=== PATIENT | female | born 1975 | race Caucasian/White ===

== ENCOUNTER → 2018-02-06 02:22 | Outpatient (CLI) | payer MEDICAID, SELFPAY ==
--- NOTE | 2018-02-06 16:20 | DI.REPORT_ITS ---
SYMPTOM/DIAGNOSIS: SCREENING, Z12.31 MAMMOGRAMS: Mammograms were interpreted according to the usual protocol including computer analysis with CAD system, tomosynthesis and C view imaging. The breast tissue is heterogeneously radiodense which lowers the sensitivity of the study. There is no dominant mass. There are no suspicious calcifications and there has been no significant interval change when compared with prior images. SUMMARY: No evidence of malignancy, category 1. Yearly screening mammography is recommended. Breast density, Category C. SA ASSESSMENT OF FINDINGS: Negative. Category 1. Patient will receive a letter notifying them of these results. Bi-RADS category C. The breasts are heterogeneously dense, which may obscure small masses.
== END ==
PROVIDERS: PCP Family Medicine; Visit Provider Nurse Practitioner Family
DX: Z12.31 Encounter for screening mammogram for malignant neoplasm of breast (principal)
CPT/HCPCS: 77063; 77067

== ENCOUNTER → 2018-02-08 14:44 | Outpatient (CLI) | payer MEDICAID, SELFPAY ==
[2018-02-12 14:04] LABS: Chlamydia Result Negative; GC Result Negative; Specimen Description CERVIX
== END ==
PROVIDERS: PCP Family Medicine; Visit Provider Nurse Practitioner Women's Health
DX: Z11.3 Encounter for screening for infections with a predominantly sexual mode of transmission (principal)
CPT/HCPCS: 87491; 87591

== ENCOUNTER 2018-04-13 02:11 | Outpatient (CLI) | payer MEDICAID, SELFPAY | END 2018-04-13 02:31 | PROVIDERS: PCP Family Medicine; Visit Provider Family Medicine | DX: R00.0 Tachycardia, unspecified (principal); I49.1 Atrial premature depolarization; I49.3 Ventricular premature depolarization | CPT/HCPCS: 93225 ==

== ENCOUNTER 2018-04-18 14:49 | Outpatient (CLI) | payer MEDICAID, SELFPAY ==
--- NOTE | 2018-04-20 09:48 | W.HOLTRPT ---
Holter Monitor Report Holter Monitor Note: 48-hour Holter monitor Indication: Tachycardia Baseline: sinus rhythm. Average heart rate 90 bpm. Rare PVCs. No NSVT. Rare PACs. No atrial arrhythmias. No significant pauses or bradyarrhythmias. 2 diary entries of thumping corresponded to sinus tachycardia. Overall sinus rhythm with rare isolated ectopy. Patient symptoms corresponding to sinus tachycardia.
== END 2018-04-18 15:09 ==
PROVIDERS: PCP Family Medicine; Visit Provider Family Medicine
DX: R00.0 Tachycardia, unspecified (principal); I49.1 Atrial premature depolarization; I49.3 Ventricular premature depolarization
CPT/HCPCS: 93226

== ENCOUNTER 2018-05-15 14:24 | Emergency (ER) | payer MEDICAID, SELFPAY ==
[2018-05-15 14:28] VITALS: BP 120/71; PULSE 98; RESP 20; TEMP 36.8; O2SAT 100
--- NOTE | 2018-05-15 14:52 | DI.RAD_ITS ---
SYMPTOMS/DIAGNOSIS: COUGH, SHORTNESS OF BREATH PA AND LATERAL CHEST: Comparison is made with May,. The cardiac and mediastinal contours have a normal appearance. The lungs are well inflated and clear. No infiltrate, effusion or pneumothorax is seen. IMPRESSION: Negative chest x-ray.
--- NOTE | 2018-05-15 14:53 | W.ED.GENAD ---
Discharge Plan Disposition Patient Disposition: HOME Condition: Good Discharge Details Chief Complaint: Nk/Back Pain Clinical Impression: Bronchitis Primary Care Provider: Em Street ED Provider: Trevin England Home Meds and New Rx's Prescriptions: New azithromycin 250 mg tablet 250 mg PO DAILY Qty: 6 RF: 0 prednisone 50 MG tablet 50 mg PO DAILY Qty: 5 RF: 0 No Action acyclovir 200 MG capsule 200 mg PO PRN RF: 0 bupropion HCl [Wellbutrin XL] 300 MG tablet extended release 24 hr 300 mg PO DAILY RF: 0 lisdexamfetamine [Vyvanse] 30 MG capsule 50 mg PO DAILY RF: 0 albuterol sulfate [ProAir HFA] 8.5 GM HFA aerosol inhaler 2 puff Inhalation Q4H PRNRF: 0 Discharge Instructions Instructions: Acute Bronchitis (ED) Additional Instructions: Please take medication as directed, please use your albuterol inhaler every 4-6 hours for the next 4 days. Please stop smoking as soon as possible. If you notice any worsening of your symptoms, or any new symptoms such as vomiting, diarrhea, fever, chills, shortness of breath, chest pain, numbness, weakness, or fainting , please return immediately to the emergency department for reevaluation. Please follow up with your primary care provider as soon as possible for reassessment and reevaluation. As always, it was a pleasure participating in your medical care today. Referrals: Em Street MD [Primary Care Provider] - Medical Decision Making This is a 42-year-old female who presents today for evaluation of cough, chronic back pain. She states that she does have chronic back pain which she understands however she feels that her cough, with mild shortness of breath is worsening her chronic back pain which she is getting adequately followed up with an outpatient basis with physical therapist. She states that she has had bronchitis and pneumonia in the past and that this feels very similar to that. She has improvement with her breathing treatments at home, but it is only brief. Patient denies any pulmonary embolism red flags, vital signs are reassuring. She did have a recent Holter monitor which was also normal. At this time we will give the patient a breathing treatment, evaluate for potential pneumonia with a chest x-ray, provide her a Lidoderm patch for her chronic spasms. 4:20 PM Patient states that she feels mildly better with the updraft treatment. Vital signs continue to be reassuring. Chest x-ray shows no acute process, however clinically she seems to demonstrate signs and symptoms concerning for community-acquired pneumonia versus chronic bronchitis. Especially of her history with bronchitis and pneumonia feeling identical to this. I do feel that she would benefit from a trial of antibiotics, as well as steroids. We will increase her daily inhaler usage to every 4-6 hours with no neurologic deficits, and no acute change for her back pain I do not feel that she requires further intervention or additional evaluation at this time. We have recommended continue close follow-up with her primary care provider and physical therapist and back specialist. Discussed red flags which to return the patient understands. I have extensively reviewed the treatment plan and discharge instructions with the patient. I have addressed all patient concerns at this time. The patient was made aware of what symptoms to monitor for that would warrant a return to the emergency department. Discussed the plan with the patient, they demonstrate verbal understanding and agreement with our assessment and plan at this time. IMPRESSION: 1. No acute fracture or dislocation. 2. Suprapatellar joint effusion 3. 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 HPI General Date/Time Provider Initiated Documentation: 05/15/18 14:42. HPI Narrative: This is a 42-year-old female with a past medical history of tachycardia recently had a normal Holter monitor, history of chronic back pain, she is currently being seen for physical therapy, injections, muscle relaxant and treatments, currently on Flexeril, who is also a smoker. She presents today for evaluation of cough. She does have her chronic back pain for the last 2-3 weeks, she is developed a mild cough over these last few weeks as well. It is nonproductive. Seems to be worsening her back pain whenever she coughs. She denies any hemoptysis, no chills, but does admit to occasional fever of 100.3 over the past few weeks but has been afebrile for some quite some. She does use her home inhaler and she states that this helps a little. She denies any associated symptoms of leg swelling, calf pain, numbness tingling or weakness. She states that her symptoms are very similar to previous episodes of bronchitis and pneumonia that she has had she denies any trauma to her neck or back. She denies any other complaints at this time. She denies any acute change for her chronic muscular back and neck pain. Denies PE risk factors such as recent long car rides, immobilization, recent surgery, prior history of DVT or PE, family history of PE or DVT, morbid obesity, exogenous estrogen and smoking, hemoptysis, history of cancer. Past surgical history is positive for hysterectomy and single right-sided oophorectomy. Patient denies any other complaints at this time. Patient states that she was unable to get an appointment with her primary care provider within the next week and so she came here for further evaluation. Holter monitor report is as follows: Holter Monitor Report Holter Monitor Note: 48-hour Holter monitor Indication: Tachycardia Baseline: sinus rhythm. Average heart rate 90 bpm. Rare PVCs. No NSVT. Rare PACs. No atrial arrhythmias. No significant pauses or bradyarrhythmias. 2 diary entries of thumping corresponded to sinus tachycardia. Overall sinus rhythm with rare isolated ectopy. Patient symptoms corresponding to sinus tachycardia. Related Data Home Medications Medication Instructions Recorded Confirmed acyclovir 200 mg PO PRN 09/03/13 05/15/18 albuterol sulfate [Proair Hfa] 2 puff INHALATION Q4H PRN 03/27/15 05/15/18 bupropion HCl [Wellbutrin Xl] 300 mg PO DAILY tab-cap 02/08/18 05/15/18 lisdexamfetamine [Vyvanse] 50 mg PO DAILY tab-cap 02/08/18 05/15/18 azithromycin 250 mg PO DAILY #6 tab 05/15/18 prednisone 50 mg PO DAILY #5 tab 05/15/18 Previous Rx's Medication Instructions Recorded azithromycin 250 mg PO DAILY #6 tab 05/15/18 prednisone 50 mg PO DAILY #5 tab 05/15/18 Allergies Allergy/AdvReac Type Severity Reaction Status Date / Time No Known Allergies Allergy Unverified 05/15/18 14:33 General Stated Complaint: Nk/Back Pain DEV: 3 Review of Systems Review of Systems All systems reviewed & are unremarkable except as noted in HPI and below PFSH section Hysterectomy, Laproscopic Ligation of fallopian tube Oophrectomy, Right Social History Smoking/Tobacco Use Status: Current every day Surgical History section Hysterectomy, Laproscopic Ligation of fallopian tube Oophrectomy, Right Social History Smoking/Tobacco Use Status: Current every day Exam Narrative Exam Narrative: 1.Const: Well-nourished, Well-developed, appearing stated age 2.Eyes: PERRL, no conjunctival injection, and symmetrical lids. 3.ENT: Atraumatic external nose and ears. Moist MM. Neck: Symmetric, trachea midline, No thyromegaly. 4.CVS: +S1/S2, No murmurs or gallops. Peripheral pulses 2+ and equal in all extremities. Brisk capillary refill in all extremities. 5.RESP: Unlabored respiratory effort. Minimal wheeze on the left and right, no crackles, but slightly decreased breath sounds in the right. No other significant abnormalities. 6.GI: Soft, Nontender/Nondistended, No hepatosplenomegaly. No guarding or rebound. 7.MSK: Normocephalic/Atraumatic, Extremities w/o deformity or ttp No cyanosis or clubbing, Normal movement of all extremities. Patient demonstrates mild to moderate left-sided paraspinal tenderness, as well as mild left-sided cervical spine tenderness. No midline tenderness for cervical thoracic or lumbar spine. No step-off sign. Normal strength in all extremities. 8.Skin: Warm, Dry. No rashes or lesions. 9.Neuro: diplomatic interpreter/translator II-XII grossly intact. Sensation grossly intact, no focal neurologic deficits. No midline tenderness to palpation over the CTLS spine. Normal ROM in flexion, extension, side bend, and rotation. Patient has +5 out of 5 strength in the lower extremities in dorsiflexion and plantarflexion, knee flexion and extension, hip flexion and extension. There is +2 over 2 dorsalis pedis pulses bilaterally. There is normal sensation to the skin with light touch at the foot, knee, and hip. Normal saddle sensation. Good sensation over the deep sural nerve area bilaterally. Rectal exam deferred. Reflexes are +2 over 4 in the patellar reflex bilaterally. +5 out of 5 strength in the medial, ulnar, radial nerve distribution bilaterally in the hands as well as intact light touch sensation to these dermatomes on the hands 10.Psych: (AAO) x3. Appropriate mood and affect Course Vital Signs Temperature 36.8 C 05/15/18 14:28 Pulse 98 H 05/15/18 14:28 Respiratory Rate 20 05/15/18 14:28 Blood Pressure 120/71 05/15/18 14:28 Pulse Oximetry 100 05/15/18 14:28 Temperature 36.8 C 05/15/18 14:28 Temperature Source Temporal Artery Scan 05/15/18 14:28 Pulse 98 H 05/15/18 14:28 Respiratory Rate 20 05/15/18 14:28 Respiratory Effort Non-Labored 05/15/18 14:28 Blood Pressure 120/71 05/15/18 14:28 Blood Pressure Position Sitting 05/15/18 14:28 Pulse Oximetry 100 05/15/18 14:28 Oxygen Delivery Method Room Air 05/15/18 14:28 Oxygen Flow Rate 0 05/15/18 14:28 Pain Level 6 05/15/18 14:28
[2018-05-15] MEDS: Lidocaine 5% Patch 1 PATCH TP (15:10)
[2018-05-15] MEDS: Albuterol/Ipratropium 3 ML UPD VIAL UPD (15:10)
--- NOTE | 2018-05-15 16:14 | DI.VRAD_ITS ---
EXAM: XR Chest, 2 Views EXAM DATE/TIME: 05/15/2018 4:05 PM CLINICAL HISTORY: 42 years old, female; Signs and symptoms; Cough and shortness of breath TECHNIQUE: XR of the chest, 2 views. COMPARISON: CR CHEST 2 VIEWS PA,LAT 05/27/2016 12:26 PM FINDINGS: Lungs: Unremarkable. No consolidation. Pleural space: Unremarkable. No pleural effusion. No pneumothorax. Heart/Mediastinum: Unremarkable. No cardiomegaly. Bones/joints: Unremarkable. IMPRESSION: No acute findings. Dictated and Authenticated by: Eduard Wyman MD. Ordering:JENNIFER CHOPRA MD
== END 2018-05-15 16:31 | disposition home or self-care (01) ==
LOC: ER 16:40
PROVIDERS: Emergency Provider Student in an Organized Health Care Education/Training Program; PCP Family Medicine
DX: J20.9 Acute bronchitis, unspecified (principal); M54.5 Low back pain; G89.29 Other chronic pain; F17.210 Nicotine dependence, cigarettes, uncomplicated
CPT/HCPCS: 94640; 99283; 71046; J7620

== ENCOUNTER 2018-06-08 18:49 | Emergency (ER) | payer MEDICAID, SELFPAY ==
[2018-06-08 19:02] VITALS: BP 128/81; PULSE 92; RESP 20; TEMP 37.1; O2SAT 97
--- NOTE | 2018-06-08 19:36 | DI.RAD_ITS ---
SYMPTOM/DIAGNOSIS: CONSTIPATION PA CHEST AND FLAT AND UPRIGHT ABDOMEN: The heart size is normal. The lungs are well inflated and clear. The bowel gas pattern is unremarkable. There is a large quantity of stool seen in the rectum. There is no gastric or small bowel dilatation. There is no evidence of organomegaly or free air. IMPRESSION: Large quantity of stool in the rectum.
--- NOTE | 2018-06-08 21:30 | ED.GENADUL_ITS ---
Discharge Plan Disposition Patient Disposition: HOME Condition: Stable Discharge Details Chief Complaint: Abd Prob Clinical Impression: Constipation Primary Care Provider: Em Street ED Provider: Conner Madden Home Meds and New Rx's Prescriptions: New bisacodyl 5 mg tablet 10 mg PO DAILY PRN (Reason: constipation) Qty: 20 RF: 0 Continued bupropion HCl [Wellbutrin XL] 300 MG tablet extended release 24 hr 300 mg PO DAILY RF: 0 Vyvanse 30 MG capsule 50 mg PO DAILY RF: 0 ProAir HFA 8.5 GM HFA aerosol inhaler 2 puff Inhalation Q4H PRNRF: 0 Discontinued acyclovir 200 MG capsule 200 mg PO PRN RF: 0 Discharge Instructions Instructions: Constipation (ED) Additional Instructions: You may also use [id number] mag citrate as needed for severe constipation, just take as directed on [id number] packaging. Stay well-hydrated and continue your stool softeners and if your symptoms persist please follow-up with your primary care provider for reassessment. Referrals: Em Street MD [Primary Care Provider] - (As needed for reassessment if your symptoms continue.) Discharge Data Discharge Date/Time-TO BE ENTERED AT DEPARTURE: 06/08/18 22:53 Medical Decision Making Patient presenting to the emergency department for chief complaint of constipation. She states that she has history of IBS with constipation. She states that 8 days ago she had a normal bowel movement and then began being constipated with a bowel movement 4 days ago and then no further bowel movement since. She has tried a bowel movement and had significant pressure and discomfort. Patient does state history of this in the past and is supposed to be taking MiraLAX, fiber, and stool softeners but has not been taking them recently or staying well-hydrated. Patient denies any vomiting, fever chills, vaginal or urinary symptoms. Patient has soft abdomen with some mild tenderness in left lower quadrant. Rectal examination was done with RN shea Quezada in the room and shows significant fecal load with large stool ball noted right within the rectum. No obvious signs of hemorrhoids or fissures are noted. Attempted to disimpact stool with mild success and patient requested to attempt to use the restroom. Patient was able to have some small bowel movements so she was given Dulcolax in the emergency department and discharged home with instructions to stay well-hydrated, continue stool softeners, and use Dulcolax as needed. Patient encouraged to return for any new or worsening symptoms are to follow-up with primary care as needed for reassessment. After discussion of diagnosis and plan of care patient has no further needs, questions, or concerns and states clear understanding to return to the emergency department for any worsening symptoms. HPI General Mode of arrival: ambulatory . Date/Time Provider Initiated Documentation: 06/08/18 19:36 . Limitations to Documentation: no limitations . Information obtained by: patient . History of Present Illness 42 year old F presents to the emergency department with the chief complaint of Constipation, described as severe and similar to prior episodes, with intensity rated at 8. Quality is described as sharp, and is localized to the abdomen. Patient started experiencing this day(s) (2) and it has been constant. No relieving factors improve symptom(s), Patient did receive the following treatments prior to arrival, other (Multiple [id number]-[id number] laxatives) Related Data Home Medications Medication Instructions Recorded Confirmed ProAir HFA 2 puff INHALATION Q4H PRN 03/27/15 06/08/18 Vyvanse 50 mg PO DAILY tab-cap 02/08/18 06/08/18 bupropion HCl [Wellbutrin XL] 300 mg PO DAILY tab-cap 02/08/18 06/08/18 bisacodyl 10 mg PO DAILY PRN #20 tab 06/08/18 Previous Rx's Medication Instructions Recorded bisacodyl 10 mg PO DAILY PRN #20 tab 06/08/18 Allergies Allergy/AdvReac Type Severity Reaction Status Date / Time No Known Allergies Allergy Unverified 06/08/18 19:06 General Stated Complaint: Abd Prob DEV: 3 Review of Systems Constitutional Denies chills, Denies fever(s) and Denies poor appetite Cardiovascular Denies chest pain and Denies dyspnea Respiratory Denies dyspnea Gastrointestinal Reports as per HPI, Reports abdominal pain, Denies melena, Denies change in bowel habits, Reports constipation, Denies diarrhea, Denies nausea and Denies vomiting Genitourinary Denies hematuria, Denies urinary incontinence, Denies urinary hesitancy and Denies urinary urgency Integumentary/Breasts Denies rash [facility] Surgical History section Hysterectomy, Laproscopic Ligation of fallopian tube Oophrectomy, Right Social History Smoking/Tobacco Use Status: Current every day Exam Const General: cooperative Orientation: alert, awake and oriented x3 Resp Effort & Inspection: normal respiratory effort and able to speak in complete sentences Auscultation: clear to auscultation bilaterally Cardio Rate: regular rate Rhythm: regular rhythm Heart Sounds: S1 normal and S2 normal GI Palpation: soft, no hepatosplenomegaly, not firm, no guarding, no masses, no pulsatile masses, not rigid, no splenomegaly and tender in the LLQ; not at McBurney's point, not periumbilically, Navarro's sign negative, with no rebound tenderness and Rovsing's sign negative Auscultation: normal bowel sounds Rectal Exam - female: fecal impaction Back/Spine/Pelvis Back: no CVA tenderness Neuro General: alert, awake, oriented x3, gait normal and moves all extremities Course Vital Signs Temperature 37.1 C 06/08/18 19:02 Pulse 92 H 06/08/18 19:02 Respiratory Rate 20 06/08/18 19:02 Blood Pressure 128/81 06/08/18 19:02 Pulse Oximetry 97 06/08/18 19:02 Temperature 37.1 C 06/08/18 19:02 Temperature Source Temporal Artery Scan 06/08/18 19:02 Pulse 92 H 06/08/18 19:02 Respiratory Rate 20 06/08/18 19:02 Blood Pressure 128/81 06/08/18 19:02 Blood Pressure Position Standing 06/08/18 19:02 Pulse Oximetry 97 06/08/18 19:02 Pain Level 8 06/08/18 19:02 Procedures Rectal Disimpaction Indication: fecal impaction Procedural Sedation: No Sedation/Analgesia: none Technique: manual disimpaction with gloved finger Result: unable to disimpact (Only small amounts of stool were able to be removed) Patient Tolerated Procedure: well and no complications Complications: pain Additional Comments: LORRIE Quezada was present during the procedure
--- NOTE | 2018-06-08 21:38 | DI.VRAD_ITS ---
EXAM: XR Abdomen 2 Views with XR Chest 1 View EXAM DATE/TIME: 06/08/2018 9:08 PM CLINICAL HISTORY: 42 years old, female; Signs and symptoms; Constipation TECHNIQUE: XR of the abdomen (2 views) with XR chest (1 view). COMPARISON: CR XR CHEST 2V PA LATERAL 05/15/2018 3:46 PM FINDINGS: Lungs: Normal. No consolidation. Pleural space: Normal. No pneumothorax. Heart/Mediastinum: Normal. No cardiomegaly. Gastrointestinal tract: Large fecal load within the rectum consistent with constipation/fecal impaction. Small amount of air and fecal matter throughout the remainder of the colon. No radiographic evidence of bowel obstruction. Intraperitoneal space: Normal. No free air. Vasculature: Bilateral pelvic calcifications consistent with phleboliths. Bones/joints: Normal. No acute fracture. Soft tissues: Normal. IMPRESSION: Large fecal load within the rectum consistent with constipation/fecal impaction. Dictated and Authenticated by: Suleiman Neri MD. Ordering:BRANDO Prieto MD
[2018-06-08] MEDS: Ketorolac 30 MG/ML VIAL IM (21:53)
[2018-06-08] MEDS: Bisacodyl 5 MG TABEC 10 MG PO (22:50)
[2018-06-08 22:51] VITALS: BP 123/60; PULSE 90; RESP 16; TEMP 37.1; O2SAT 97
== END 2018-06-08 22:53 | disposition home or self-care (01) ==
PROVIDERS: Emergency Provider Nurse Practitioner Family; PCP Family Medicine
DX: K59.00 Constipation, unspecified (principal); R10.32 Left lower quadrant pain; Z91.14 Patient's other noncompliance with medication regimen
CPT/HCPCS: 96372; 99284; 74022; J1885

== ENCOUNTER 2018-07-02 16:44 | Outpatient (REF) | payer MEDICAID, SELFPAY ==
[2018-07-04 15:26] LABS: Chlamydia Result Negative; GC Result Negative; Specimen Description CERVIX
== END 2018-07-02 17:04 ==
LOC: LBN 16:44
PROVIDERS: PCP Family Medicine; Visit Provider Obstetrics & Gynecology
DX: N89.8 Other specified noninflammatory disorders of vagina (principal)
CPT/HCPCS: 87491; 87591; 87480; 87510; 87660

== ENCOUNTER 2018-08-15 19:24 | Emergency (ER) | payer MEDICAID, SELFPAY ==
[2018-08-15] VITALS (9 sets, daily range): BP systolic 127–131; BP diastolic 78–85; PULSE 80–99; RESP 16–23; TEMP 36.3–37; O2SAT 99–100
--- NOTE | 2018-08-15 19:57 | ED.GENADUL_ITS ---
Discharge Plan Disposition Patient Disposition: HOME Condition: Stable Discharge Details Chief Complaint: RespSymp Clinical Impression: Shortness of breath, Wheezing Primary Care Provider: Em Street ED Provider: Balbir Agarwal Home Meds and New Rx's Prescriptions: New prednisone 20 mg tablet 60 mg PO DAILY 4 Days Qty: 12 RF: 0 doxycycline hyclate 100 mg tablet 100 mg PO BID Qty: 14 RF: 0 Continued bupropion HCl [Wellbutrin XL] 300 MG tablet extended release 24 hr 300 mg PO DAILY RF: 0 albuterol sulfate [ProAir HFA] 8.5 GM HFA aerosol inhaler 2 puff Inhalation Q4H PRNRF: 0 bisacodyl 5 mg tablet 10 mg PO DAILY PRN (Reason: constipation) Qty: 20 RF: 0 dextroamphetamine-amphetamine [Adderall] 10 mg Tablet 40 mg PO DAILY RF: 0 Discharge Instructions Instructions: Wheezing (ED) Additional Instructions: Follow up with your primary care provider within 1 week especially if symptoms continue if you feel you are worsening, have worse pain or shortness of breath return to the emergency department for reevaluation Medical Decision Making 43 yo female who states she is a smoker, no diagnosis of copd (states having formal testing on 08/22) but has an inhaler, who comes in with cc of shortness of breath and productive cough for a week. No fevers, states she has had chest tightness intermittently, no n/v. On exam she is speaking in full sentences in no distress with wheezing at the bases and apices bilaterally. I suspect her symptoms are due to copd exacerbtaion given her hx of smoking and will tx with neb, steroids and given increased cough abx. NO fever and appears well so doubt pna and do not feel xray indicated. I suspect her chest tightness is also from the copd, heart score is 1, will send troponin and obtian ecg and if negative refer to pcp. Wells low and perc negative so doubt Pe at this time pt remains stable, in no respiratory distress, feels improved and has only mild apical wheezing bilaterally at this time, labs unremarkable. Will d/c home, advised f/u with pcp and return precautions given Differential Diagnosis copd, pna, nstemi, anemia Lab Data Lab results reviewed: Yes I reviewed the patient's lab results. ECG Data Attestation: I personally reviewed and interpreted this ECG (s) as follows: Prior ECG tracings: not available for review Interpretation: sinus rhythm, rate of 96, pr 112, qtc 425, no acute ischemic st t wave findings HPI General Mode of arrival: ambulatory . Date/Time Provider Initiated Documentation: 08/15/18 19:46 . Limitations to Documentation: no limitations . Information obtained by: patient . History of Present Illness 43 year old F presents to the emergency department with the chief complaint of shortness of breath, described as moderate, and is localized to the chest. Patient reports no radiation. Patient started experiencing this week(s) and it has been constant. Rest improves symptom(s), Movement worsens symptoms . Patient notes cough. Patient did receive the following treatments prior to arrival, other (inhaler) Related Data Home Medications Medication Instructions Recorded Confirmed albuterol sulfate [ProAir HFA] 2 puff INHALATION Q4H PRN 03/27/15 08/15/18 bupropion HCl [Wellbutrin XL] 300 mg PO DAILY tab-cap 02/08/18 08/15/18 bisacodyl 10 mg PO DAILY PRN #20 tab 06/08/18 08/15/18 dextroamphetamine-amphetamine 40 mg PO DAILY 08/15/18 08/15/18 [Adderall] doxycycline hyclate 100 mg PO BID #14 tab 08/15/18 prednisone 60 mg PO DAILY 4 Days #12 tab 08/15/18 Previous Rx's Medication Instructions Recorded bisacodyl 10 mg PO DAILY PRN #20 tab 06/08/18 doxycycline hyclate 100 mg PO BID #14 tab 08/15/18 prednisone 60 mg PO DAILY 4 Days #12 tab 08/15/18 Allergies Allergy/AdvReac Type Severity Reaction Status Date / Time No Known Allergies Allergy Unverified 08/15/18 19:46 General Stated Complaint: RespSymp DEV: 4 Review of Systems Review of Systems All systems reviewed & are unremarkable except as noted in HPI and below Gastrointestinal Denies abdominal pain and Denies vomiting Integumentary/Breasts Denies rash PFSH Surgical History section Hysterectomy, Laproscopic Ligation of fallopian tube Oophrectomy, Right Social History Smoking and Tabacco status: Current every day Exam Const General: no acute distress Orientation: alert HENDC Head: normal to inspection Ears: external ears normal General nose exam: external nose normal Mouth: moist mucous membranes Eyes General: appearance normal, both eyes and all related structures Neck Neck: normal visual inspection Resp Effort & Inspection: normal respiratory effort and able to speak in complete sentences Cardio Rate: regular rate Skin General skin exam: no rashes or lesions noted Neuro General: alert and oriented x3 Extrem General: normal to inspection Psych Mental Status: mental status grossly normal Course Vital Signs Temperature 36.5 C 08/15/18 19:43 Pulse 98 H 08/15/18 19:43 Respiratory Rate 20 08/15/18 19:43 Blood Pressure 127/78 08/15/18 19:43 Pulse Oximetry 99 08/15/18 19:43 Temperature 36.5 C 08/15/18 19:43 Temperature Source Skin 08/15/18 19:43 Pulse 98 H 08/15/18 19:43 Respiratory Rate 20 08/15/18 19:43 Respiratory Effort 08/15/18 19:49 Respiratory Depth Normal 08/15/18 19:49 Blood Pressure 127/78 08/15/18 19:43 Blood Pressure Position Sitting 08/15/18 19:43 Pulse Oximetry 99 08/15/18 19:43 Oxygen Delivery Method Room Air 08/15/18 19:43 Oxygen Flow Rate 0 08/15/18 19:43 Pain Level 5 08/15/18 19:43
[2018-08-15] MEDS: Doxycycline Hyclate 100 MG CAP PO (20:13)
[2018-08-15] MEDS: Albuterol/Ipratropium 3 ML UPD VIAL UPD (20:13)
[2018-08-15] MEDS: predniSONE 20 MG TAB 60 MG PO (20:13)
[2018-08-15 20:14] LABS: Abs Immature Grans 0.03 k/cumm (0.0-0.09); Absolute Basophil Count 0.04 k/cumm (0.0-0.2); Absolute Eosinophil Count 0.12 k/cumm (0.0-0.7); Absolute Lymphocyte Count 3.81 k/cumm (1.2-3.4); Absolute Monocyte Count 0.63 k/cumm (0.11-0.7); Absolute Neutrophil Count 5.86 k/cumm (1.2-6.7); Basophils % 0.4; Eosinophils % 1.1; HCT 40.7 % (36.0-46.0); HGB 14.1 g/dL (12.0-15.5); Immature Grans % 0.3; Lymphocytes % 36.3; Mean Corp. HGB Concentration 34.6 g/dL (32.0-36.0); Mean Corpuscular Hemoglobin 31.8 pg (27.0-33.0); Mean Corpuscular Volume 91.7 fL (80-95); Mean Platelet Volume 10.1 fL (8.0-11.0); Neutrophils % 55.9; Platelet Count 207 x1000/uL (130-400); RBC 4.44 m/cumm (4.00-5.20); White Blood Cell Count 10.49 k/cumm (4.4-10.8)
[2018-08-15 20:30] LABS: ALT 24 U/L (12-78); AST 17 U/L (15-37); Albumin 4.3 g/dL (3.4-5.0); Alkaline Phosphatase 50 U/L (46-116); Anion Gap 12.4 mmol/L (3-11); BUN 14 mg/dL (7-18); Bilirubin, Total 0.2 mg/dL (0.2-1.0); CO2 22.6 mmol/L (21.0-32.0); CREATININE 0.95 mg/dL (0.55-1.02); Chloride 103 mmol/L (98-107); Glucose 86 mg/dL (70-100); Magnesium 2.2 mg/dL (1.8-2.4); Potassium 3.7 mmol/L (3.5-5.1); Sodium 138 mmol/L (136-145); Total Protein 7.6 g/dL (6.4-8.2)
[2018-08-15 20:38] LABS: Troponin I < 0.02 ng/mL (0.00-0.06)
[2018-08-15] MEDS: Ondansetron O.D.T. 4 MG TABEF (21:07)
--- NOTE | 2018-08-15 21:30 | NUR.NOTE ---
Nursing Note: Pt states she feels funny and like she was going to pass out. VSS. brought into room 8 and placed on monitor, pt is resting comfortably at this time and a family member is coming to drive pt home.
== END 2018-08-15 22:20 | disposition home or self-care (01) ==
PROVIDERS: Emergency Provider Emergency Medicine; PCP Family Medicine
DX: R06.02 Shortness of breath (principal); R06.2 Wheezing; R05 Cough; F17.210 Nicotine dependence, cigarettes, uncomplicated
CPT/HCPCS: 36415; 80053; 93005; 94640; 99284; 83735; 84484; 85025; 93010; J7512; J7620

== ENCOUNTER 2018-08-22 03:08 | Outpatient (CLI) | payer MEDICAID, SELFPAY ==
--- NOTE | 2018-08-22 10:05 | PFT_ITS ---
PULMONARY FUNCTION TEST REPORT DATE OF SERVICE: August 22, 2018 REQUESTING PROVIDER: Em Street M.D. Spirometry shows no evidence of obstructive airways disease; no bronchodilator response. Lung volumes show no evidence of restriction. There is mild hyperinflation and air trapping. Diffusion capacity normal. Airways resistance normal. IMPRESSION: Overall normal pulmonary function study. Clinical correlation recommended. When this study was compared to previous one from 03/23/12, the patient has an overall stable FVC with an overall 70 cc's decline over this period of time and FEV1 has declined by 160 cc's. Overall this may be just related to age-related decline. GRAZYNA/alexandre D/
[2018-08-22] MEDS: Inhaler, Assist Device 1 EACH MC (11:44)
[2018-08-22] MEDS: Albuterol HFA 18 GM 200 PUFF INH IH (11:44)
== END 2018-08-22 03:28 ==
PROVIDERS: PCP Family Medicine; Visit Provider Family Medicine
DX: R06.09 Other forms of dyspnea (principal); R05 Cough; F17.210 Nicotine dependence, cigarettes, uncomplicated
CPT/HCPCS: 94060; 94150; 94726; 94729

== ENCOUNTER 2018-09-05 10:17 | Outpatient (CLI) | payer MEDICAID, SELFPAY ==
--- NOTE | 2018-09-05 09:57 | DI.RAD_ITS ---
SYMPTOMS/DIAGNOSIS: EVAL RT SHOULDER PAIN RIGHT SHOULDER: There is minimal spurring at the glenoid. The humeral head is normally positioned. No tendon or joint space calcifications are seen. There is no significant spurring at the AC joint. The visualized portions of the right ribs are unremarkable. IMPRESSION: Minimal degenerative changes.
== END 2018-09-05 10:37 ==
PROVIDERS: PCP Family Medicine; Visit Provider Student in an Organized Health Care Education/Training Program
DX: M25.511 Pain in right shoulder (principal); M19.011 Primary osteoarthritis, right shoulder
CPT/HCPCS: 73030

== ENCOUNTER 2018-12-03 00:44 | Outpatient (CLI) | payer MEDICAID, SELFPAY ==
--- NOTE | 2018-12-03 08:30 | ETT_ITS ---
*[facility]* *[facility]* [address] [place] [address] Stress Electrocardiography Greg protocol Date of study: 12/03/2018 *PATIENT PRESENTATION* Height: 152.4cm (60in) Blood Pressure: Weight: 54.5kg (120lb) BSA: 1.53m^2 Referring physician: Em Street Ordering physician: Em Street Impressions: Normal study after maximal exercise. Summary: 1. Stress ECG conclusions: The stress ECG is negative. Flores treadmill score: 10. This score predicts a low risk of cardiac events. Indication: R07.9. History: REASON FOR TESTING: ELEVATED HR FOR APPROXIMATELY 2 YEARS, WITH A POUNDING SENSATION. IN THE PAST MONTH, PT REPORTS HAVING SOME CHEST PAIN. CENTRAL TIGHTNESS REPORTED. NO PAIN TODAY. PATIENT DID STATE THAT SHE WAS UNDER A GREAT AMOUT OF STRESS IN THE PAST 2 YEARS, AND THAT IS ONGOING. PMH: ASTHMA, EXCERCISE INDUCED. PTSD, ADD, DEPRESSION. FAMILY HX: MOTHER-CVA X2. SMOKING:DAILY 1/2 PPD X 25 YEARS. EXCERCISE: BUSY LIFESTYLE, NO REGULAR EXCERCISE. PMH: Asthma. Risk factors: NO CHOLESTEROL DATA AVAILABLE. Family history of coronary artery disease. Current tobacco use. ALLERGIES: NKDA MEDICATIONS: ALBUTEROL SULFATE 2 PUFFS Q4H NEEDED, BUPRION HCL 300 MG DAILY, DEXTROAMPHETAMINE-AMPHETAMIN 40 MG DAILY. Protocol: Greg protocol. Baseline ECG: LAST EKG 05/27/16- SINUS RHYTHM, HR 62. TODAY'S EKG- SINUS RHYTHM HR 81. Stress protocol: + +---+ +---+ !Stage !HR !BP (mmHg) !Sat! + +---+ +---+ !Baseline supine !81 !118/60 (79) !---! + +---+ +---+ !Baseline standing !90 !110/60 (77) !99%! + +---+ +---+ !Stage I; 1.7mph, 10degrees; 3 min !109!112/60 (77) !---! + +---+ +---+ !Stage II; 2.5mph, 12degrees; 3 min !121!120/62 (81) !---! + +---+ +---+ !Stage III; 3.4mph, 14degrees; 3 min!141!130/82 (98) !98%! + +---+ +---+ !Recovery; 1 min !146!150/80 (103)!---! + +---+ +---+ !Recovery; 3 min !90 !120/78 (92) !---! + +---+ +---+ !Recovery; 6 min !82 !108/60 (76) !---! + +---+ +---+ * Stress results: The rate-pressure product for the peak heart rate and blood pressure was 28292dy Hg/min. Stress ECG: EXCERCISE TESTING ENDED IN 9 MINS, 35 SECS, DUE TO FATIGUE. MAX HR [id number], 91% OF TARGET. SLIGHTLY HYPERTENSIVE BLOOD PRESSURE RESPONSE. METS: 11.08 ECTOPY: NONE SEEN. ANGINA: NO REPORTED CHEST PAIN OR PRESSURE. ISCHEMIA: NO ISCHEMIC CHANGES NOTED. FUNCTIONAL CAPACITY: AVERAGE EXCERCISE CAPACITY. The stress ECG is negative. Flores treadmill score: 10. This score predicts a low risk of cardiac events. Study data: Balbir Kennedy MD supervised and was readily available during the procedure. This study was interpreted by [facility]. Study status: Routine. Consent: The risks, benefits, and alternatives to the procedure were explained to the patient and informed consent was obtained. Procedure: Initial setup. A baseline ECG was recorded. Surface ECG leads and manual cuff blood pressure measurements were monitored. Heart sounds: Normal. Lung sounds: Normal. Treadmill exercise testing was performed using the Greg protocol. Study completion: The patient tolerated the procedure well and was discharged from the lab. Discharge: The patient left the laboratory in stable condition. Birthdate: Patient birthdate: 1975. Sex: Gender: female. Study date: Study date: 12/03/2018. Study time: 00:01 AM. Electronically signed by Balbir Kennedy MD 12/17/2018 10:21
== END 2018-12-03 01:04 ==
PROVIDERS: PCP Family Medicine; Visit Provider Family Medicine
DX: R00.0 Tachycardia, unspecified (principal); R07.89 Other chest pain
CPT/HCPCS: 93017

== ENCOUNTER 2018-12-06 01:07 | Outpatient (CLI) | payer MEDICAID, SELFPAY ==
--- NOTE | 2018-12-06 11:38 | DI.MRI_ITS ---
SYMPTOM/DIAGNOSIS; ROTATOR UFF TENDINITIS, POSSIBLE TEAR, M75.81 SHLD LESION RT SHOULDER MRI RIGHT SHOULDER: 12/06 MRI examination of the shoulder was performed according to the usual protocol. Motion artifact limits interpretation to some degree. No significant bony signal abnormality seen. Biceps tendon and anchor are unremarkable. Glenoid labrum not ideally visualized. There are mild hypertrophic degenerative changes of the acromioclavicular joint with perhaps minimal impingement on superior aspect of myotendinous junction in the region of the supraspinatus. Minimally increased signal noted in supraspinatus tendon consistent with mild tendinosis. No supraspinatus tendon tear seen. Infraspinatus appears normal. Subscapularis shows question slight superior margin partial or full thickness tear, no retraction. CONCLUSION: Question of small superior surface edge tear of subscapularis. Minimal supraspinatus tendinosis. No other significant findings.
== END 2018-12-06 01:27 ==
PROVIDERS: PCP Family Medicine; Visit Provider Student in an Organized Health Care Education/Training Program
DX: M75.81 Other shoulder lesions, right shoulder (principal); M25.511 Pain in right shoulder; M75.41 Impingement syndrome of right shoulder
CPT/HCPCS: 73221

== ENCOUNTER 2019-04-15 11:19 | Outpatient (REF) | payer MEDICAID, SELFPAY ==
[2019-04-15 18:28] LABS: Bilirubin Negative (Negative); Blood Trace-intact (Negative); Clarity Clear (Clear); Glucose Negative (Negative); Ketones Negative (Negative); Leukocyte Esterase Negative (Negative); Nitrite Negative (Negative); Specific Gravity 1.025 (1.005-1.025); Urobilinogen 0.2 EU/dL (Up TO 0.2); pH 6.5 (5-8)
[2019-04-15 18:41] LABS: Bacteria Moderate HPF (Negative); C & S Indicated? Yes; Crystals Many Calcium Oxalate HPF (Negative); Epithelial Cells Moderate HPF (Negative); Mucus Negative (Negative); RBC 0-2 (0-2); WBC 0-2 HPF (0-5)
== END 2019-04-15 11:39 ==
LOC: NCHCN 11:19
PROVIDERS: PCP Family Medicine; Visit Provider Family Medicine
DX: R10.32 Left lower quadrant pain (principal); R82.90 Unspecified abnormal findings in urine
CPT/HCPCS: 81003; 81015; 87086

== ENCOUNTER 2019-04-22 01:14 | Outpatient (CLI) | payer MEDICAID, SELFPAY ==
--- NOTE | 2019-04-22 07:57 | DI.US_ITS ---
EXAM: US ABD PELV TRANSVAG NON-OB CLINICAL HISTORY: ABD PAIN LT UPPER QUAD, R10.12,LLQ PAIN TECHNIQUE: Ultrasound performed using standard protocol. COMPARISON: No exams were available for comparison FINDINGS: Abdominal ultrasound: The aorta and inferior vena cava are unremarkable as visualized. The liver is normal in size. It measures 14.7 cm. No hepatic mass is seen. There is hepatopetal fl ow through the portal vein. The gallbladder is unremarkable. No gallbladder wall thickening or pericholecystic fluid is present. There is a negative sonographic Navarro's sign. The pancreas, spleen and kidneys are unremarkable. No fluid is seen in the abdomen. Pelvic ultrasound: The patient is status post hysterectomy and right oophorectomy. The left ovary is visualized and is unremarkable. It measures 3.1 x 2.6 x 1.5 cm. Blood flow is seen to the left ovary. No evidence of torsion. IMPRESSION: 1. Unremarkable abdominal ultrasound. 2. Status post hysterectomy and right oophorectomy. Otherwise unremarkable pelvic ultrasound.
== END 2019-04-22 01:34 ==
PROVIDERS: PCP Family Medicine; Visit Provider Family Medicine
DX: R10.12 Left upper quadrant pain (principal); R10.32 Left lower quadrant pain; Z90.710 Acquired absence of both cervix and uterus; Z90.721 Acquired absence of ovaries, unilateral
CPT/HCPCS: 76700; 76830; 76856

== ENCOUNTER 2019-09-12 12:20 | Outpatient (REF) | payer MEDICAID, SELFPAY ==
[2019-09-15 02:51] LABS: SARS-CoV-2 RNA Undetected (Undetected); SARS-CoV-2 Specimen Source Nasopharynx
== END 2019-09-12 12:40 ==
LOC: NCHCN 12:20
PROVIDERS: PCP Family Medicine; Visit Provider Nurse Practitioner Family
DX: R05 Cough (principal); R06.02 Shortness of breath
CPT/HCPCS: U0003

== ENCOUNTER 2020-02-13 10:23 | Outpatient (REF) | payer MEDICAID, SELFPAY ==
[2020-02-13 16:57] LABS: TSH 1.66 uIU/mL (0.36-3.74)
== END 2020-02-13 10:43 ==
LOC: NCHCN 10:23
PROVIDERS: PCP Family Medicine; Visit Provider Family Medicine
DX: F41.8 Other specified anxiety disorders (principal)
CPT/HCPCS: 84443

== ENCOUNTER 2021-05-10 15:08 | Outpatient (REF) | payer MEDICAID, SELFPAY ==
[2021-05-10 20:03] LABS: Calculated LDL 135 mg/dL (<100); Cholesterol 202 mg/dL (<200); HDL Cholesterol 49 mg/dL (40-60); Triglyceride 94 mg/dL (<150)
[2021-05-12 10:20] LABS: Hepatitis C Ab w Rflx HCV PCR Negative (Negative)
[2021-05-12 10:25] LABS: HIV-1/2 Ag & Ab Screen Negative (Negative)
== END 2021-05-10 15:09 | disposition home or self-care (01) ==
LOC: NCHCN 15:08
PROVIDERS: PCP Family Medicine; Visit Provider Family Medicine
DX: Z13.220 Encounter for screening for lipoid disorders (principal); Z11.4 Encounter for screening for human immunodeficiency virus [HIV]; Z11.59 Encounter for screening for other viral diseases
CPT/HCPCS: 80061; 86803; 87389

== ENCOUNTER 2023-07-12 19:41 | Outpatient (REF) | payer SELFPAY ==
[2023-07-12 19:45] LABS: HCT 39.1 % (36.0-46.0); HGB 13.2 g/dL (11.2-15.7); MCH 31.4 pg (27.0-33.0); MCHC 33.8 % (32.0-36.0); MCV 93 fL (80-95); RBC 4.21 10^6/uL (3.93-5.22); RDW 12.7 % (11.7-14.6); RDW-SD 43.2 fL; WBC 10.36 10^3/uL (4.4-10.8)
[2023-07-12 20:16] LABS: Hemoglobin A1C 5.5 % (<5.7)
[2023-07-12 20:20] LABS: ALT 27 U/L (14-59); AST 16 U/L (15-37); Alkaline Phosphatase 48 U/L (46-116); Anion Gap 8.8 mmol/L (3-11); BUN 12 mg/dL (7-18); Bilirubin, Total 0.5 mg/dL (0.2-1.0); CO2 26.2 mmol/L (21.0-32.0); CREATININE 0.8 mg/dL (0.55-1.02); Calcium 8.9 mg/dL (8.5-10.1); Chloride 106 mmol/L (98-107); Folate 14.5 ng/mL (8.6-20.0); Glucose 72 mg/dL (74-106); Potassium 3.7 mmol/L (3.5-5.1); Sodium 141 mmol/L (136-145); TSH (W/Ref FT4) 1.16 uIU/mL (0.36-3.74); Total Protein 7.2 g/dL (6.4-8.2); Vitamin B12 614 pg/mL (193-986)
== END 2023-07-12 19:42 | disposition home or self-care (01) ==
LOC: NCHCN 19:41
PROVIDERS: PCP Family Medicine; Visit Provider Family Medicine
DX: R53.83 Other fatigue (principal); Z13.1 Encounter for screening for diabetes mellitus; Z13.21 Encounter for screening for nutritional disorder
CPT/HCPCS: 80053; 85027; 82607; 82746; 83036; 84443